=== PATIENT | female | born 1975 | race Two or more races ===

== ENCOUNTER → 2024-12-07 | Outpatient (CLI) | payer OTHER, SELFPAY ==
--- NOTE | 2024-12-07 13:00 | XR_ITS ---
Examination: Breast ultrasound complete, bilateral Date and time of exam: December 07, 2024, 1313 hours INDICATIONS: Right breast sonogram April 02, 2024 2:00 nodule 12 x 10 mm, left breast 10:00 nodule with breast biopsy marker 9 x 9 mm Technique: Real-time grayscale ultrasonographic imaging bilateral breasts, including all 4 quadrants as well as nipple retroareolar and axillary regions. Findings: Sonographic images right breast 2:00 nodule with breast biopsy marker 10 x 10 x 12 mm 10:00 nodule circumscribed 5 x 4 mm Sonographic images left breast 12:00 cyst 5 x 6 mm 6:00 cyst 4 x 5 mm 7:00 solid nodule lobular margins 5 x 4 mm 10:00 nodule circumscribed with breast biopsy marker 8 x 10 mm IMPRESSION: BI-RADS Category 3: Probably benign findings One additional 6 month bilateral breast sonography follow-up is needed to document stability of multiple nodules described above
== END | disposition home or self-care (01) ==
LOC: CDIM 12:58
DX: N63.22 Unspecified lump in the left breast, upper inner quadrant (principal); N63.12 Unspecified lump in the right breast, upper inner quadrant; N63.11 Unspecified lump in the right breast, upper outer quadrant; N64.4 Mastodynia; N63.24 Unspecified lump in the left breast, lower inner quadrant; N60.12 Diffuse cystic mastopathy of left breast
CPT/HCPCS: 76641